=== PATIENT | male | born 1970 | race Caucasian/White ===

== ENCOUNTER 2020-12-29 06:23 | Day surgery (SDC) | payer OTHER, MEDICAID, SELFPAY ==
[2020-12-04 07:58] VITALS: BMI 30.1
[2020-12-29] VITALS (8 sets, daily range): BP systolic 111–137; BP diastolic 80–101; PULSE 91–100; RESP 16; TEMP 36.1–36.8; O2SAT 97–100; BMI 27.0
--- NOTE | 2020-12-29 06:54 | HP.PCM_ITS ---
HPI - General HPI Narrative JOE LI, is a 50 M who presents via open access today. He has never had a previous colonoscopy. He has no symptoms. No bright red blood per rectum or melena. Family history is notable for a grandfather who had colon cancer. The patient's not had COVID-19. He has not been vaccinated. [facility] Medical History (Updated 12/29/20 @ 06:[address] Imer Rodriguez MD) Back problem Bilateral foot pain CPAP (continuous positive airway pressure) dependence Fracture of left clavicle History of irregular heartbeat Non-smoker Screening for colon cancer Sleep apnea Vitamin deficiency Wears glasses Wears partial dentures Home Medications ibuprofen 200 mg capsule 200 mg PO Q6H PRN 12/04/20 [History Last Taken Unknown] naproxen 250 mg tablet 250 mg PO BID PRN 12/04/20 [History Last Taken Unknown] gabapentin 100 mg capsule 100 mg PO BID #180 cap 12/16/20 [Rx Last Taken Unknown] Allergy/AdvReac Type Severity Reaction Status Date / Time acetaminophen [From Vicodin] AdvReac Severe Kept awake Verified 12/29/20 06:46 hydrocodone [From Vicodin] AdvReac Severe Kept awake Verified 12/29/20 06:46 oxycodone [From Percocet] AdvReac Intermediate Kept awake Verified 12/29/20 06:46 tramadol [From Ultram] AdvReac Unknown Didn't work Verified 12/29/20 06:46 Family History Father Diabetes Arthritis Skin cancer Surgical History History of knee surgery History of repair of rotator cuff History of shoulder surgery Social History Smoking Status: Never smoker alcohol intake: never substance use type: does not use frequency: 1-2 times per week ROS Constitutional Constitutional: Reports systems reviewed and no addt'l complaints, except as documented Cardiovascular Cardiovascular: Denies chest pain Respiratory/Chest Respiratory/Chest: Denies shortness of breath at rest Gastrointestinal Gastrointestinal: Denies abdominal pain, change in bowel habits, hematochezia or melena Vital Signs Vital Signs Vital Signs: 12/29/20 06:47 Temperature 98.3 F Temperature Source Temporal Pulse Rate 93 Respiratory Rate 16 Blood Pressure 137/80 H Blood Pressure Mean 99 Blood Pressure Source Monitor Blood Pressure Position Semi-Fowlers Blood Pressure Location Right Arm Pulse Ox 97 Oxygen Delivery Method Room Air Weight Weight: 216 lb 4.375 oz Body Mass Index (BMI) 27.0 Physical Exam Const alert, oriented x3 and no apparent distress General Appearance: cooperative and comfortable Eyes General Eye: normal appearance of both eyes Neck General: normal visual inspection Chest inspection of chest normal Resp Effort and Inspection: able to speak in complete sentences and symmetric chest movement Auscultation: clear to auscultation bilaterally Cardio regular rate and regular rhythm GI soft to palpation, non-tender and non-distended Extremity no calf tenderness Neuro oriented x3 Psych thought process normal Assessment & Plan Assessment/Plan (1) Screening for intestinal cancer: PLAN: I recommended the patient a screening colonoscopy with possible biopsy or polypectomy as indicated. He is aware of the technique, benefit, risk, alternatives. He has had an opportunity to ask and have questions answered. He presents via open access today. Imer Rodriguez M.D., F.A.C.S.
[2020-12-29] MEDS: Lactated Ringers 1,000 ML 100 ML IV (07:13)
[2020-12-29] MEDS: Midazolam 5 MG/ML Syringe (07:53)
--- NOTE | 2020-12-29 08:18 | OP.COLON_ITS ---
Patient Name: Ralf Yung Procedure Date: 12/29/2020 7:49 AM Date of : 1970 Age: 50 Procedure: Colonoscopy Indications: Screening for colorectal malignant neoplasm Providers: Imer Rodriguez MD Medicines: Midazolam 4.5 mg IV, Meperidine 100 mg IV Patient Profile: Last Colonoscopy: none. The patient's first colonoscopy is today. Complications: No immediate complications. Procedure: Pre-Anesthesia Assessment: - Prior to the procedure, a History and Physical was performed, and patient medications and allergies were reviewed. The patient's tolerance of previous anesthesia was also reviewed. The risks and benefits of the procedure and the sedation options and risks were discussed with the patient. All questions were answered, and informed consent was obtained. Prior Anticoagulants: The patient has taken no previous anticoagulant or antiplatelet agents. ASA Grade Assessment: II - A patient with mild systemic disease. After reviewing the risks and benefits, the patient was deemed in satisfactory condition to undergo the procedure. After I obtained informed consent, the scope was passed under direct vision. Throughout the procedure, the patient's blood pressure, pulse, and oxygen saturations were monitored continuously. The Colonoscope was introduced through the anus and advanced to the cecum, identified by appendiceal orifice and ileocecal valve. The colonoscopy was performed without difficulty. The patient tolerated the procedure well. The quality of the bowel preparation was adequate to identify polyps. The ileocecal valve and the appendiceal orifice were photographed. Moderate Sedation: Moderate (conscious) sedation was personally administered by the endoscopist. The following parameters were monitored: oxygen saturation, heart rate, blood pressure, and response to care. Total physician intraservice time was 15 minutes. Scope In: 7:56:41 AM Scope Withdrawal Time 0 hours 9 minutes 37 seconds Scope Out: 8:10:25 AM Total Procedure Duration Time 0 hours 13 minutes 44 seconds Findings: The digital rectal exam findings include non-thrombosed internal hemorrhoids and internal hemorrhoids (Grade I). Pertinent negatives include normal prostate (size, shape, and consistency). The colon (entire examined portion) appeared normal. Impression: - Non-thrombosed internal hemorrhoids and internal hemorrhoids (Grade I) found on digital rectal exam. - The entire examined colon is normal. - No specimens collected. Recommendation: - Discharge patient to home. - Resume previous diet. - Continue present medications. - Repeat colonoscopy in 10 years for screening purposes. Procedure Code(s): --- Professional --- 53670, Colonoscopy, flexible; diagnostic, including collection of specimen(s) by brushing or washing, when performed (separate procedure) 42676, 59, Moderate sedation services provided by the same physician or other qualified health care assistant performing the diagnostic or therapeutic service that the sedation supports, requiring the presence of an independent trained observer to assist in the monitoring of the patient's level of consciousness and physiological status; initial 15 minutes of intraservice time, patient age 5 years or older Diagnosis Code(s): --- Professional --- Z12.11, Encounter for screening for malignant neoplasm of colon K64.0, First degree hemorrhoids CPT copyright 2017 [employer]. All rights reserved. The codes documented in this report are preliminary and upon director speech review may be revised to meet current compliance requirements. Imer Rodriguez MD 12/29/2020 8:18:09 AM This report has been signed electronically. Number of Addenda: 0 Note Initiated On: 12/29/2020 7:49 AM
--- NOTE | 2020-12-29 08:20 | OP.CCLET_ITS ---
12/29/2020 Richard Carroll Re : Colonoscopy procedure for Ralf [place] Dear Dr. Carroll This procedure was performed on Tuesday, December 29, 2020. My impressions and recommendations are as follows: Impressions : - Non-thrombosed internal hemorrhoids and internal hemorrhoids (Grade I) found on digital rectal exam. - The entire examined colon is normal. - No specimens collected. Recommendations : - Discharge patient to home. - Resume previous diet. - Continue present medications. - Repeat colonoscopy in 10 years for screening purposes. My findings are described in the full procedure note, which is enclosed. If I can be of further assistance, please feel free to contact me at Doctor phone number(s): Work: . Sincerely, Imer Rodriguez MD 12/29/2020 8:18:09 AM This report has been signed electronically.
== END 2020-12-29 09:03 ==
LOC: EN 06:24 → AC 06:25
PROVIDERS: PCP Family Medicine; Referring Provider Family Medicine; Visit Provider Surgery
PROC: 0DJD8ZZ Inspection of Lower Intestinal Tract, Via Natural or Artificial Opening Endoscopic (ICD-10-PCS; CPT 45378; principal; 2020-12-29 07:25)
DX: Z12.11 Encounter for screening for malignant neoplasm of colon (principal); Z80.0 Family history of malignant neoplasm of digestive organs; G47.30 Sleep apnea, unspecified; Z79.899 Other long term (current) drug therapy; K64.0 First degree hemorrhoids
CPT/HCPCS: 45378; 87426; 99152; 99153; J7120

== ENCOUNTER → 2021-12-01 | Outpatient (CLI) | payer OTHER, MEDICAID, SELFPAY ==
[2021-12-01 12:06] LABS: Absolute Neutrophil Count 3.4 X10^3/uL (2.0-7.7); Basophil# 0.01 X10^3/uL; Basophil% 0.2 % (0-1); Eosinophil# 0.05 X10^3/uL; Eosinophils% 0.9 % (0-5); Mean Corp Hgb Conc 31.6 g/dL (32-36); Mean Corpuscular Hgb 19.9 pg (27.0-32.0); Monocyte# 0.45 X10^3/uL; Monocyte% 8.2 % (0-10); NRBC Flagged by Analyzer 0 % (0-5); Neutrophil # 3.41 X10^3/uL (2.7-7.7); Neutrophil % 61.7 % (47-70); Platelet Count 240 K/mm3 (150-450); RBC Distribution Width CV 15.6 % (11.6-14.6); RBC Distribution Width SD 33.6 fl (35.1-43.9); Red Blood Count 6.03 M/mm3 (4.6-6.2); White Blood Count 5.5 K/mm3 (4.4-11.0)
[2021-12-01 12:39] LABS: ALB/GLOB Ratio 1.2 RATIO (0.9-2.4); AST(SGOT) 14 U/L (15-37); Alanine Aminotransfer ALT/SGPT 22 U/L (16-61); Albumin, Serum 3.8 g/dL (3.2-5.0); Alkaline Phosphatase 78 U/L (45-117); Anion Gap 5 (5-15); BUN 15 mg/dL (7-18); BUN/Creat Ratio 14.2 RATIO (10-20); Calcium,Total 9.2 mg/dL (8.5-10.1); Chloride 105 mmol/L (98-107); Cholesterol 143 mg/dL (200); Creatinine, Serum 1.06 mg/dL (0.70-1.30); EST Glomerular Filtration Rate 78 mL/min (>60); Est Glom Filt Rate - Afr Amer 95 mL/min (>60); Globulin 3.3 g/dL (2.2-4.2); Glucose 312 mg/dL (74-106); High Density Lipoprotein 30 mg/dL; Magnesium 2.1 mg/dL (1.6-2.6); Potassium 3.7 mmol/L (3.5-5.1); Protein, Total 7.1 g/dL (6.4-8.2); Sodium Level 136 mmol/L (136-145); Thyroid Stim Hormone (TSH) 2.86 uIU/mL (0.358-3.74); Triglycerides 427 mg/dL
== END | disposition home or self-care (01) ==
PROVIDERS: PCP Family Medicine; Visit Provider Nurse Practitioner Family
DX: R00.0 Tachycardia, unspecified (principal); R07.9 Chest pain, unspecified; R06.00 Dyspnea, unspecified; R73.09 Other abnormal glucose
CPT/HCPCS: 36415; 80053; 80061; 83036; 83735; 84443; 85025

== ENCOUNTER 2021-12-02 10:29 | Emergency (ER) | payer OTHER, MEDICAID, SELFPAY ==
[2021-12-02 10:30] VITALS: BP 106/65; PULSE 179; RESP 15; TEMP 36.6; O2SAT 100; BMI 27.1
--- NOTE | 2021-12-02 10:37 | EKG12_ITS ---
Test Reason : svt Blood Pressure : / mmHG Vent. Rate : 179 BPM Atrial Rate : 000 BPM P-R Int : 000 ms QRS Dur : 090 ms QT Int : 276 ms P-R-T Axes : 000 023 013 degrees QTc Int : 476 ms Supraventricular tachycardia Nonspecific ST abnormality Abnormal ECG Confirmed by CHANG DUARTE, AURELIA ([id number]), commercial production editor KEVIN PRICE ([id number]) on 12/03/2021 10:20:44 AM Referred By: Confirmed By:AURELIA DOWNING MD
[2021-12-02] MEDS: Adenosine 6 MG/2 ML Syringe IV (10:38)
[2021-12-02 10:39] VITALS: O2SAT 100
[2021-12-02] MEDS: Adenosine 6 MG/2 ML Syringe 12 MG IV (10:41)
--- NOTE | 2021-12-02 10:43 | EKG12_ITS ---
Test Reason : repeat Blood Pressure : / mmHG Vent. Rate : 118 BPM Atrial Rate : 118 BPM P-R Int : 148 ms QRS Dur : 092 ms QT Int : 332 ms P-R-T Axes : 043 029 037 degrees QTc Int : 465 ms Sinus tachycardia Otherwise normal ECG Confirmed by CHANG DUARTE, AURELIA ([id number]), scientific publications editor KEVIN PRICE ([id number]) on 12/03/2021 10:18:01 AM Referred By: Confirmed By:AURELIA DOWNING MD
[2021-12-02 10:44] VITALS: BP 104/70; PULSE 118; RESP 16; O2SAT 100
--- NOTE | 2021-12-02 10:45 | ED.VIS.CHEST ---
HPI History of Present Illness Chief Complaint: Palpitations Informant: patient and EMS Narrative Narrative: 51-year-old male presenting to the emergency room via EMS with a chief complaint of SVT. Patient states around 930 he felt his heart start to race. EMS confirmed SVT with prehospital EKG. EMS notes failed vagal maneuver. Patient notes that this is the third time in about a year that he has felt this. 1 week ago he had an episode. He states that he went to see his primary care provider yesterday and is supposed to get a Holter monitor. He does note that when he was in high school he had an episode but had not had another episode until the sugar. He drinks 1 to 2 cups of caffeinated beverages per day. Non-smoker. He does note a mild lightheadedness with his tachycardia. He denies any syncope or chest pain. PFSH [facility] Medical History Back problem Bilateral foot pain Chest pain CPAP (continuous positive airway pressure) dependence Dyspnea Fracture of left clavicle History of irregular heartbeat Non-smoker JASON (obstructive sleep apnea) Palpitations Screening for colon cancer Sleep apnea Vitamin deficiency Wears glasses Wears partial dentures Home Medications metoprolol succinate 25 mg tablet,extended release 24 hr (Toprol XL) 25 mg PO BID #60 tabs 12/02/21 [Rx Last Taken Unknown] Allergy/AdvReac Type Severity Reaction Status Date / Time acetaminophen [From Vicodin] AdvReac Severe Kept awake Verified 12/01/21 10:28 hydrocodone [From Vicodin] AdvReac Severe Kept awake Verified 12/01/21 10:28 oxycodone [From Percocet] AdvReac Intermediate Kept awake Verified 12/01/21 10:28 tramadol [From Ultram] AdvReac Unknown Didn't work Verified 12/01/21 10:28 Family History Father Diabetes Arthritis Skin cancer Surgical History History of knee surgery History of repair of rotator cuff History of shoulder surgery Social History Smoking Status: Never smoker alcohol intake: never substance use type: does not use frequency: 1-2 times per week ROS ROS ED Constitutional Constitutional ED: Denies chills, fever(s) or weight loss Eyes Eyes: Denies change in vision or diplopia ENT ENT ED: Denies ear pain, rhinorrhea or sore throat Cardiovascular Cardiovascular: Reports palpitations and racing heartbeat; Denies chest pain or orthopnea Respiratory/Chest Respiratory/Chest: Denies cough, dyspnea or orthopnea Gastrointestinal Gastrointestinal: Denies abdominal pain, diarrhea, nausea or vomiting Genitourinary Genitourinary ED: Denies dysuria, hematuria or urinary frequency Musculoskeletal Musculoskeletal: Denies arthralgias or myalgias Integumentary Denies abscess or rash Neurologic Neurologic: Denies headache(s) or weakness Psychiatric Psychiatric: Denies anxiety, depression, suicidal ideation or suicidal thoughts Endocrine Endocrinology: Denies polydipsia, polyphagia or polyuria Allergic/Immunologic Allergic/Immunologic ED: Denies mouth swelling, tongue swelling or urticaria EXAM Physical Exam Const Vital Signs: 12/02/21 10:30 12/02/21 10:39 12/02/21 10:44 Temperature 97.8 F Temperature Source Temporal Pulse Rate 179 H 118 H Respiratory Rate 15 16 Respiratory Pattern Blood Pressure 106/65 104/70 Blood Pressure Mean 78 81 Pulse Ox 100 100 100 Oxygen Delivery Method Room Air Nasal Cannula Nasal Cannula Oxygen Flow Rate (L/min) 3 3 12/02/21 10:47 12/02/21 11:13 12/02/21 11:54 Temperature Temperature Source Pulse Rate 114 H Respiratory Rate 20 H Respiratory Pattern Normal Blood Pressure 127/82 H Blood Pressure Mean 97 Pulse Ox 100 99 Oxygen Delivery Method Room Air Room Air Oxygen Flow Rate (L/min) Positive well nourished and well developed General Appearance ED: well developed HEENT Reports normocephalic, head/scalp atraumatic and moist mucous membranes Eyes PERRL and EOMs intact bilaterally Neck no lymphadenopathy, supple and no JVD Resp normal respiratory effort and clear to auscultation bilaterally Cardio regular rhythm and no murmurs Rate: tachycardic GI normal to inspection, nondistended, normoactive bowel sounds and non-tender Palpation: soft Back/Spine no CVA tenderness and normal ROM Extremity normal to inspection General Extremety ED: Negative for edema General Extremity: Negative for edema Neuro oriented x3 and CN's II-XII intact bilaterally Sensorium / Orientation: alert Motor Exam: strength 5/5 throughout Psych mental status grossly normal Mood & Affect: Negative for depressed or tearful Skin no rashes or lesions noted and no wounds MDM MDM MDM Narrative Medical decision making narrative: The patient received 6 mg of adenosine with no effect on rhythm/rate. 12 mg of adenosine was administered which achieved cardioversion to a sinus tachycardia. Basic blood work showed a potassium of 3.4 magnesium 2.3 TSH 3.29. My interpretation of the chest x-ray is no acute process. Patient has remained in sinus rhythm. I spoke with on-call cardiology Dr. Turpin. Patient will be started on low-dose metoprolol and will follow-up with cardiology in the office. He was given return instructions. We talked about potential side effects of metoprolol and when to decrease his dose. Patient notes understanding of plan. Lab Data Attestation: I reviewed the patient's lab results. Labs: Laboratory Results - last 24 hr 12/02/21 12/02/21 10:34 10:34 WBC 6.7 RBC 6.54 H Hgb 12.8 L Hct 40.7 MCV 62.2 L MCH 19.6 L MCHC 31.4 L RDW Std Deviation 33.5 L RDW Coeff of Merlin 16.5 H Plt Count 252 MPV 10.5 Immature Gran % (Auto) 0.300 Neut % (Auto) 55.2 Lymph % (Auto) 34.9 [place] % (Auto) 8.7 Eos % (Auto) 0.6 Baso % (Auto) 0.3 Absolute Neuts (auto) 3.7 Absolute Lymphs (auto) 2.33 Nucleated RBC % 0 Sodium 137 Potassium 3.4 L Chloride 102 Carbon Dioxide 27.0 Anion Gap 8 BUN 13 Creatinine 1.01 Estim Creat Clear Calc 104.58 Est GFR (MDRD) Af Amer 100 Est GFR (MDRD) Non-Af 83 BUN/Creatinine Ratio 12.9 Glucose 379 H Calcium 9.1 Magnesium 2.3 TSH 3.29 Radiography Diagnostic Testing: Clinical Impression(s) from Imaging Studies Chest X-Ray 12/02/21 11:15 IMPRESSION: No radiographic evidence of acute cardiopulmonary disease. Electronically Signed: Tomás Collado MD at 11:40 EDT , Discharge Plan Triage Chief Complaint: Palpitations ED Provider: Jack Hinton Dx/Rx/DC Orders Clinical Impression: SVT (supraventricular tachycardia), JASON (obstructive sleep apnea) Instructions: ED Understanding Supraventricular Tachycardia (SVT) Prescriptions: New metoprolol succinate [Toprol XL] 25 mg tablet extended release 24 hr 25 mg PO BID Qty: 60 0RF Primary Care Provider: Richard Carroll Referrals: Richard Carroll DO [Primary Care Provider] - Salinas Perez MD [Med Staff - Active Staff] - As soon as possible Disposition Disposition: Home, Self Care
[2021-12-02 10:52] LABS: Absolute Lymphocyte Count 2.33 X10^3/uL (0.83-4.51); Absolute Neutrophil Count 3.7 X10^3/uL (2.0-7.7); Basophil# 0.02 X10^3/uL; Basophil% 0.3 % (0-1); Eosinophil# 0.04 X10^3/uL; Eosinophils% 0.6 % (0-5); Hematocrit 40.7 % (40-54); Hemoglobin 12.8 g/dL (13.0-16.5); Lymphocyte # 2.33 X10^3/ul (0.83-4.51); Lymphocyte % 34.9 % (19-41); Mean Corp Hgb Conc 31.4 g/dL (32-36); Mean Corpuscular Hgb 19.6 pg (27.0-32.0); Mean Corpuscular Volume 62.2 fL (80-94); Mean Platelet Vol. 10.5 fl (6.2-12.0); Monocyte# 0.58 X10^3/uL; Monocyte% 8.7 % (0-10); NRBC Flagged by Analyzer 0 % (0-5); Neutrophil # 3.69 X10^3/uL (2.7-7.7); Neutrophil % 55.2 % (47-70); Platelet Count 252 K/mm3 (150-450); RBC Distribution Width CV 16.5 % (11.6-14.6); RBC Distribution Width SD 33.5 fl (35.1-43.9); Red Blood Count 6.54 M/mm3 (4.6-6.2); White Blood Count 6.7 K/mm3 (4.4-11.0)
[2021-12-02 11:13] VITALS: O2SAT 100
--- NOTE | 2021-12-02 11:15 | RAD_ITS ---
EXAM: XR CHEST, 1 VIEW CLINICAL INDICATION: svt TECHNIQUE: Frontal view of the chest. This report was created using [employer] report generation technology. COMPARISON: None. FINDINGS: LUNGS AND PLEURAL SPACES: Unremarkable. No consolidation or edema. No pneumothorax. No effusion. HEART: Unremarkable. Cardiac silhouette not enlarged. MEDIASTINUM: Central airways and mediastinal contour are unremarkable. BONES/JOINTS: Unremarkable. SOFT TISSUES: Unremarkable. RAD/Chest 1 View (Portable) IMPRESSION: No radiographic evidence of acute cardiopulmonary disease. Electronically Signed: Tomás Collado MD at 11:40 EDT ,
[2021-12-02 11:16] LABS: Anion Gap 8 (5-15); BUN 13 mg/dL (7-18); BUN/Creat Ratio 12.9 RATIO (10-20); Calcium,Total 9.1 mg/dL (8.5-10.1); Chloride 102 mmol/L (98-107); Creatinine, Serum 1.01 mg/dL (0.70-1.30); EST Glomerular Filtration Rate 83 mL/min (>60); Est Glom Filt Rate - Afr Amer 100 mL/min (>60); Estimated Creatinine Clearance 104.58 ml/min; Glucose 379 mg/dL (74-106); Magnesium 2.3 mg/dL (1.6-2.6); Potassium 3.4 mmol/L (3.5-5.1); Sodium Level 137 mmol/L (136-145); Thyroid Stim Hormone (TSH) 3.29 uIU/mL (0.358-3.74)
[2021-12-02 11:54] VITALS: BP 127/82; PULSE 114; RESP 20; O2SAT 99
[2021-12-02 12:07] VITALS: BP 123/89; PULSE 69; RESP 15; O2SAT 97
[2021-12-02] MEDS: Metoprolol(XL)Succ 25 MG Tablet PO (12:14)
== END 2021-12-02 12:17 | disposition home or self-care (01) ==
PROVIDERS: Emergency Provider Emergency Medicine; PCP Family Medicine; Visit Provider Emergency Medicine
DX: I47.1 Supraventricular tachycardia (principal); G47.33 Obstructive sleep apnea (adult) (pediatric)
CPT/HCPCS: 71045; 80048; 83735; 84443; 85025; 93005; 96374; 96376; 99285; A4216; J0153

== ENCOUNTER → 2022-01-11 | Outpatient (CLI) | payer OTHER, MEDICAID, SELFPAY ==
--- NOTE | 2022-01-11 13:35 | STRESSREP ---
Stress Test Report [place] stress test. 51-year-old man with a history of chest pain and supraventricular tachyarrhythmia. Stress protocol: Resting EKG demonstrates normal sinus rhythm with a rate of 68 bpm normal intervals are noted. Resting blood pressure is 132/70 mmHg. The patient exercised according to regular Sarbjit protocol for total duration of 9 minutes. Patient completed stage III of the Sarbjit protocol the maximum heart rate attained was 160 bpm which was 94% of max impacted heart rate the maximum workload was 10.1 metabolic equivalents. At rest there were no ST or T wave changes noted to suggest ischemia and at peak exercise upsloping ST changes were noted with did not meet the criteria for ischemia. No clinical angina was noted the test was terminated due to target heart rate being achieved. No arrhythmias were noted and no ischemic changes were noted. The peak blood pressure was noted to be 176/86 which was a normal blood pressure response to exercise with a rate-pressure product of 25,280. Conclusion: Exercise stress test with no EKG criteria for ischemia at a high workload. Good functional aerobic capacity. No arrhythmias noted.
== END | disposition home or self-care (01) ==
LOC: CVS 11:52
PROVIDERS: PCP Family Medicine; Referring Provider Nurse Practitioner Family; Visit Provider Nurse Practitioner Family
DX: R00.0 Tachycardia, unspecified (principal); R07.9 Chest pain, unspecified; R00.2 Palpitations; R06.00 Dyspnea, unspecified
CPT/HCPCS: 93017

== ENCOUNTER → 2022-01-31 | Outpatient (CLI) | payer OTHER, MEDICAID, SELFPAY ==
[2022-01-31 16:45] LABS: Absolute Lymphocyte Count 1.14 X10^3/uL (0.83-4.51); Absolute Neutrophil Count 2.5 X10^3/uL (2.0-7.7); Basophil# 0.01 X10^3/uL; Basophil% 0.2 % (0-1); Eosinophil# 0.07 X10^3/uL; Eosinophils% 1.6 % (0-5); Hematocrit 39.3 % (40-54); Hemoglobin 11.8 g/dL (13.0-16.5); Lymphocyte # 1.14 X10^3/ul (0.83-4.51); Lymphocyte % 26.2 % (19-41); Mean Corpuscular Hgb 19.2 pg (27.0-32.0); Mean Corpuscular Volume 63.9 fL (80-94); Mean Platelet Vol. 9.5 fl (6.2-12.0); Monocyte# 0.64 X10^3/uL; Monocyte% 14.7 % (0-10); NRBC Flagged by Analyzer 0 % (0-5); Neutrophil # 2.48 X10^3/uL (2.7-7.7); Neutrophil % 57.1 % (47-70); Platelet Count 242 K/mm3 (150-450); RBC Distribution Width CV 16.9 % (11.6-14.6); Red Blood Count 6.15 M/mm3 (4.6-6.2); White Blood Count 4.4 K/mm3 (4.4-11.0)
[2022-01-31 17:35] LABS: ALB/GLOB Ratio 1.1 RATIO (0.9-2.4); AST(SGOT) 15 U/L (15-37); Alanine Aminotransfer ALT/SGPT 18 U/L (16-61); Albumin, Serum 3.7 g/dL (3.2-5.0); Alkaline Phosphatase 58 U/L (45-117); Anion Gap 7 (5-15); BUN 17 mg/dL (7-18); BUN/Creat Ratio 16.8 RATIO (10-20); Calcium,Total 8.9 mg/dL (8.5-10.1); Chloride 107 mmol/L (98-107); Creatinine, Serum 1.01 mg/dL (0.70-1.30); EST Glomerular Filtration Rate 83 mL/min (>60); Est Glom Filt Rate - Afr Amer 100 mL/min (>60); Globulin 3.5 g/dL (2.2-4.2); Glucose 113 mg/dL (74-106); Magnesium 1.6 mg/dL (1.6-2.6); Potassium 4.1 mmol/L (3.5-5.1); Protein, Total 7.2 g/dL (6.4-8.2); Sodium Level 140 mmol/L (136-145); Thyroid Stim Hormone (TSH) 1.28 uIU/mL (0.358-3.74)
[2022-02-01 14:23] LABS: Ferritin 290 ng/mL (26-388); Iron 45 ug/dL (65-175); Iron Binding Capacity,Total 305 ug/dL (250-450)
== END | disposition home or self-care (01) ==
LOC: BIMLAB 16:20
PROVIDERS: PCP Family Medicine; Referring Provider Physician Assistant; Visit Provider Physician Assistant
DX: R06.00 Dyspnea, unspecified (principal); I47.1 Supraventricular tachycardia; E11.9 Type 2 diabetes mellitus without complications; R00.2 Palpitations; R42 Dizziness and giddiness; D50.9 Iron deficiency anemia, unspecified; R53.83 Other fatigue
CPT/HCPCS: 36415; 80053; 82728; 83540; 83550; 83735; 84443; 85025

== ENCOUNTER → 2022-03-21 | Outpatient (CLI) | payer OTHER, MEDICAID, SELFPAY ==
[2022-03-21 13:03] LABS: Hemoglobin A1c 6.5 % (3.8-5.6)
== END | disposition home or self-care (01) ==
LOC: BIMLAB 10:42
PROVIDERS: PCP Family Medicine; Visit Provider Family Medicine
DX: E11.9 Type 2 diabetes mellitus without complications (principal)
CPT/HCPCS: 36415; 83036

== ENCOUNTER → 2022-03-29 | Outpatient (CLI) | payer OTHER, MEDICAID, SELFPAY ==
--- NOTE | 2022-03-29 13:55 | ECHOD_ITS ---
Reason For Study: ARRYTHMIA Procedure This was a 2D Doppler, Color Flow transthoracic echocardiogram. The exam was of adequate technical quality. Exam performed in department. Left Ventricle Left ventricular systolic function is normal. The estimated ejection fraction is 65 %. No evidence for diastolic dysfunction. No regional wall motion abnormalities noted. Right Ventricle Normal RV size. Normal systolic function. Atria Normal left atrium. Normal right atrium. No doppler evidence for ASD. Mitral Valve There is no mitral annular calcification. Normal mitral valve. Trivial mitral valve insufficiency. Tricuspid Valve Normal tricuspid valve. Trivial tricuspid valve insufficiency. Unable to estimate RV systolic pressure due to insufficient tricuspid regurgitant envelope. Aortic Valve Trisinus/trileaflet aortic valve. Mild focal aortic valve calcification. Pulmonic Valve The pulmonic valve is not well visualized. Great Vessels Normal sized aortic root. Pericardium/Pleural No pericardial effusion. MMode/2D Measurements & Calculations RVDd: 3.7 cm Ao root diam: 3.4 cm LAV(MOD-bp): 58.8 ml LAV(MOD-bp) Indexed: 27.1 ml/m2 LAV(MOD-sp2): 73.4 ml LAV(MOD-sp4): 48.3 ml SV(MOD-sp4): 55.8 ml LVAd ap4: 31.7 cm2 LVAd ap2: 31.4 cm2 LVLd ap4: 8.4 cm LVLd ap2: 8.8 cm EDV(MOD-sp4): 96.2 ml EDV(MOD-sp2): 97.1 ml EDV(sp4-el): 102.2 ml EDV(sp2-el): 95.3 ml LVAs ap4: 17.8 cm2 LVAs ap2: 16.5 cm2 LVLs ap4: 6.8 cm LVLs ap2: 6.7 cm ESV(MOD-sp4): 40.4 ml ESV(MOD-sp2): 35.1 ml ESV(sp4-el): 39.4 ml ESV(sp2-el): 34.5 ml EF(MOD-sp4): 58.0 % EF(MOD-sp2): 63.8 % EF(sp4-el): 61.5 % SV(MOD-sp2): 62.0 ml SV(sp4-el): 62.8 ml LA A4 area: 17.8 cm2 LA dimension(2D): 3.7 cm RA A4 area: 16.5 cm2 Time Measurements MV dec time: 0.19 sec Doppler Measurements & Calculations MV E max zane: 66.6 cm/sec Lat Peak E' Zane: 16.6 cm/sec Med Peak E' Zane: 9.3 cm/sec MV A max zane: 49.1 cm/sec E/E' lat: 4.0 E/E' med: 7.2 MV E/A: 1.4 MV V2 max: 69.0 cm/sec MV dec slope: 367.9 cm/sec2 Ao V2 max: 129.1 cm/sec MV max P.9 mmHg Ao max P.7 mmHg MV V2 mean: 47.8 cm/sec Ao V2 mean: 95.1 cm/sec MV mean P.98 mmHg Ao mean P.1 mmHg MV V2 VTI: 18.8 cm Ao V2 VTI: 30.1 cm AV (velocity ratio): 0.79 LV V1 max: 101.3 cm/sec PA V2 max: 102.0 cm/sec LV V1 max P.1 mmHg PA V2 mean: 65.8 cm/sec LV V1 mean P.4 mmHg LV V1 mean: 74.1 cm/sec LV V1 VTI: 23.7 cm ECHO/Echo Complete Interpretation Summary Left ventricular systolic function is normal. The estimated ejection fraction is 65 %. Trivial mitral valve insufficiency. Trivial tricuspid valve insufficiency. Mild focal aortic valve calcification. Unable to estimate RV systolic pressure due to insufficient tricuspid regurgita nt envelope. No evidence for diastolic dysfunction. Ordering Physician: Salinas Perez Referring Physician: Salinas Perez Performed By: Marianela Villanueva RCS
== END | disposition home or self-care (01) ==
LOC: CVS 13:54
PROVIDERS: PCP Family Medicine; Referring Provider Internal Medicine Cardiovascular Disease; Visit Provider Internal Medicine Cardiovascular Disease
DX: I47.1 Supraventricular tachycardia (principal); E11.9 Type 2 diabetes mellitus without complications; R07.9 Chest pain, unspecified; G47.33 Obstructive sleep apnea (adult) (pediatric)
CPT/HCPCS: 93306

== ENCOUNTER → 2022-11-22 | Outpatient (CLI) | payer OTHER, MEDICAID, SELFPAY ==
--- NOTE | 2022-11-22 09:20 | RAD_ITS ---
INDICATION: pain EXAMINATION/TECHNIQUE: X-RAY - RIGHT XR Knee Complete 4 Views or More 4 VIEWS COMPARISON: FINDINGS: SOFT TISSUES: No soft tissue swelling or gas. No radiopaque foreign body. BONES/JOINTS: No acute fracture or subluxation.. Normal alignment. There is mild medial and patellofemoral joint space narrowing. There is a small suprapatellar joint effusion... No sclerotic or destructive changes observed. RAD/Knee 4 or More Views IMPRESSION: Mild degenerative change. Small joint effusion. Electronically Signed: Jack Michael, at 9:48 EDT ,
== END | disposition home or self-care (01) ==
LOC: MTRAD 09:17
PROVIDERS: PCP Family Medicine; Referring Provider Physician Assistant; Visit Provider Physician Assistant
DX: M25.561 Pain in right knee (principal)
CPT/HCPCS: 73564

== ENCOUNTER → 2023-01-24 | Outpatient (CLI) | payer MEDICAID, SELFPAY ==
[2023-01-24 12:51] LABS: ALB/GLOB Ratio 1.1 RATIO (0.9-2.4); AST(SGOT) 15 U/L (15-37); Alanine Aminotransfer ALT/SGPT 31 U/L (16-61); Albumin, Serum 4.1 g/dL (3.2-5.0); Alkaline Phosphatase 73 U/L (45-117); Anion Gap 6 (5-15); BUN 13 mg/dL (7-18); BUN/Creat Ratio 12.9 RATIO (10-20); Chloride 111 mmol/L (98-107); Cholesterol 130 mg/dL (200); Creatinine, Serum 1.01 mg/dL (0.70-1.30); EST Glomerular Filtration Rate 83 mL/min (>60); Est Glom Filt Rate - Afr Amer 100 mL/min (>60); Globulin 3.9 g/dL (2.2-4.2); Glucose 150 mg/dL (74-106); High Density Lipoprotein 34 mg/dL; Potassium 4.7 mmol/L (3.5-5.1); Sodium Level 141 mmol/L (136-145); Triglycerides 143 mg/dL; Very Low Density Lipoprotein 29 mg/dL (5-40)
== END | disposition home or self-care (01) ==
LOC: BIMLAB 10:59
PROVIDERS: PCP Family Medicine; Visit Provider Family Medicine
DX: B35.1 Tinea unguium (principal)
CPT/HCPCS: 36415; 80053; 80061

== ENCOUNTER → 2024-08-20 | Outpatient (CLI) | payer MEDICAID, SELFPAY ==
[2024-08-20 17:04] LABS: Absolute Lymphocyte Count 1.36 X10^3/uL (0.83-4.51); Absolute Neutrophil Count 3.3 X10^3/uL (2.0-7.7); Basophil# 0.02 X10^3/uL; Basophil% 0.4 % (0-1); Eosinophil# 0.06 X10^3/uL; Eosinophils% 1.1 % (0-5); Hematocrit 42.5 % (40-54); Hemoglobin 12.8 g/dL (13.0-16.5); Lymphocyte # 1.36 X10^3/ul (0.83-4.51); Lymphocyte % 25.7 % (19-41); Mean Corp Hgb Conc 30.1 g/dL (32-36); Mean Corpuscular Hgb 19.7 pg (27.0-32.0); Mean Corpuscular Volume 65.3 fL (80-94); Monocyte% 9.5 % (0-10); NRBC Flagged by Analyzer 0 % (0-5); Neutrophil # 3.34 X10^3/uL (2.7-7.7); Neutrophil % 63.1 % (47-70); Platelet Count 219 K/mm3 (150-450); RBC Distribution Width CV 17.2 % (11.6-14.6); RBC Distribution Width SD 36.1 fl (35.1-43.9); Red Blood Count 6.51 M/mm3 (4.6-6.2); White Blood Count 5.3 K/mm3 (4.4-11.0)
[2024-08-20 17:35] LABS: ALB/GLOB Ratio 1.6 RATIO (0.9-2.4); AST(SGOT) 23 U/L (<=37); Alanine Aminotransfer ALT/SGPT 29 U/L (<=46); Albumin, Serum 4.6 g/dL (3.5-5.0); Alkaline Phosphatase 67 U/L (40-129); Anion Gap 12 (5-15); BUN 19 mg/dL (4-19); BUN/Creat Ratio 17.9 RATIO (10-20); Calcium,Total 9.7 mg/dL (7.6-11.0); Carbon Dioxide 24.2 mmol/L (21.0-32.0); Chloride 105 mmol/L (98-108); Cholesterol 135 mg/dL (<=200); Creatinine, Serum 1.04 mg/dL (0.70-1.20); EST Glomerular Filtration Rate 86 (>60); Globulin 2.8 g/dL (2.2-4.2); Glucose 126 mg/dL (70-99); High Density Lipoprotein 31 mg/dL; Low Density Lipoprotein Calc. 68 mg/dL; Potassium 4.7 mmol/L (3.3-5.1); Protein, Total 7.5 g/dL (5.9-8.4); Sodium Level 142 mmol/L (133-145); Total Bilirubin 0.51 mg/dL (0.00-1.30); Triglycerides 180 mg/dL; Very Low Density Lipoprotein 36 mg/dL (5-40); cholesterol:hdl ratio screen 4.35
[2024-08-22 04:07] LABS: LDL, Direct 120295 74 mg/dL (0-99)
== END | disposition home or self-care (01) ==
LOC: BIMLAB 15:56
PROVIDERS: PCP Family Medicine; Referring Provider Family Medicine; Visit Provider Family Medicine
DX: E11.9 Type 2 diabetes mellitus without complications (principal); D56.3 Thalassemia minor
CPT/HCPCS: 36415; 80053; 80061; 83721; 85025